=== PATIENT | female | born 1995 ===

== ENCOUNTER 2024-08-10 19:33 | Emergency (ER) | payer SELFPAY ==
[2024-08-10 20:13] LABS: BASOPHILS PERCENT AUTO 0.5 % (0.2-1.2); EOSINOPHILS ABSOLUTE AUTO 0.2 x10^3/uL (0.0-0.5); EOSINOPHILS PERCENT AUTO 2.2 % (0.0-4.0); HEMATOCRIT 35.7 % (33.0-47.0); HEMOGLOBIN 11.8 g/dL (12.0-16.0); IMMATURE GRAN ABSOLUTE AUTO 0.02 x10^3/uL (0.00-0.07); LYMPHOCYTES PERCENT AUTO 25.3 % (25.0-50.0); MEAN CORPUSCULAR HEMOGLOBIN 28.4 pg (26.0-32.0); MEAN CORPUSCULAR HGB CONC 33.1 g/dL (32.0-36.0); MONOCYTES ABSOLUTE AUTO 0.7 x10^3/uL (0.0-0.8); MONOCYTES PERCENT AUTO 8.4 % (2.0-11.0); NEUTROPHILS ABSOLUTE AUTO 4.9 x10^3/uL (1.8-7.7); NEUTROPHILS PERCENT AUTO 63.3 % (50.0-80.0); PLATELET COUNT,PLT 338 x10^3/uL (130-400); RED BLOOD CELL COUNT 4.15 x10^6/uL (4.00-5.50); WHITE BLOOD CELL COUNT,WBC 7.8 x10^3/uL (4.0-10.0)
[2024-08-10] MEDS: Acetaminophen 325 MG Tab PO ONE (20:30)
[2024-08-10 21:11] LABS: APPEARANCE,URINE CLEAR (CLEAR); BILIRUBIN,URINE NEGATIVE (NEGATIVE); COLOR,URINE YELLOW (YELLOW); GLUCOSE,URINE 500 mg/dL (NEGATIVE); KETONES,URINE NEGATIVE (NEGATIVE); LEUKOCYTE ESTERASE,URINE NEGATIVE (NEGATIVE); NITRITE,URINE NEGATIVE (NEGATIVE); OCCULT BLOOD,URINE NEGATIVE (NEGATIVE); PH,URINE 5.5 (5.0-8.0); PROTEIN,URINE NEGATIVE (NEGATIVE); UROBILINOGEN,URINE 0.2 EU/dL (0.2)
== END 2024-08-10 21:57 | disposition short-term general hospital (02) ==
LOC: VM.ED 19:33
DX: O99.891 Other specified diseases and conditions complicating pregnancy (principal); R10.30 Lower abdominal pain, unspecified; Z91.040 Latex allergy status; Z79.4 Long term (current) use of insulin; Z3A.08 8 weeks gestation of pregnancy
CPT/HCPCS: 36415; 81003; 81025; 85025; 99284; A9270